=== PATIENT | male | born 1995 | race Caucasian/White ===

== ENCOUNTER 2025-03-01 16:53 | Emergency (ER) | payer SELFPAY ==
[2025-03-01 17:33] VITALS: PULSE 99; TEMP 97.2
--- NOTE | 2025-03-01 17:35 | ERPHSYRPT ---
- History of Present Illness Time Seen by Provider: 03/01/25 17:20 Physician History: Presents with recurrent low back pain. He reports he has had episodes of this for 4 years. He had a negative prior x-ray and what he describes as a CT scan for the same pain. He states it flares up once or twice a year. It is always just the left of the spine. In her shoulder that was lifting that caused it. Said increasing soreness and pain along with stiffness over the last week. He has had no symptoms of cauda equina including no bowel bladder symptoms. There is no radicular pain numbness or weakness. Allergies/Adverse Reactions: No Known Drug Allergies Allergy (Verified 03/01/25 17:33) Home Medications: lisinopriL [Lisinopril] 30 mg PO DAILY 03/01/25 [History] - Review of Systems Constitutional: No Fever, No Chills Eyes: No Symptoms Ears, Nose, & Throat: No Symptoms Respiratory: No Cough, No Dyspnea Cardiac: No Chest Pain, No Edema, No Syncope Abdominal/Gastrointestinal: No Abdominal Pain, No Nausea, No Vomiting, No Diarrhea Genitourinary Symptoms: No Dysuria Musculoskeletal: Back Pain, No Neck Pain Skin: No Rash Neurological: No Dizziness, No Focal Weakness, No Sensory Changes Psychological: No Symptoms Endocrine: No Symptoms All Other Systems: Reviewed and Negative - Physical Exam General Appearance: no apparent distress, alert Eye Exam: PERRL/EOMI, eyes nml inspection Ears, Nose, Throat Exam: normal ENT inspection, TMs normal, pharynx normal, moist mucous membranes Neck Exam: normal inspection, non-tender, supple, full range of motion Respiratory Exam: normal breath sounds, lungs clear, No respiratory distress Cardiovascular Exam: regular rate/rhythm, normal heart sounds, normal peripheral pulses Gastrointestinal/Abdomen Exam: soft, normal bowel sounds, No tenderness, No mass Back Exam: normal inspection, other (The LS-spine has normal appearance. The patient reports no focal midline pain. Patient describes tenderness on his focally at the left SI joint. There is no discoloration or redness. He has a negative straight leg raise. There is no motor weakness or sensory loss) Extremity Exam: normal inspection, normal range of motion, pelvis stable Neurologic Exam: alert, oriented x 3, cooperative, normal mood/affect, nml cerebellar function, nml station & gait, sensation nml, No motor deficits Skin Exam: normal color, warm, dry, No rash Lymphatic Exam: No adenopathy - Progress Progress Note: 03/01/25 17:30 Patient has recurrent back pain. He has no prior imaging. He has tenderness of the left SI joint but otherwise unremarkable neurovascular exam and no evidence of cauda equina. We discussed Modalities but I feel these are likely will be low yield outside of an MRI given his self-described prior x-rays and CTs of t his area. Will try symptomatic management. If he is not improved he will follow with his provider for further outpatient imaging and workup - Departure Clinical Impression: Sacro ilial pain Condition: Good Critical Care Time: No Instructions: Low Back Pain (DC) Additional Instructions: Being started on medication for your back pain which is over your sacroiliac joint. If your symptoms do not improve you should follow-up with your provider for further imaging or therapy. Return for worsening symptoms such as numbness weakness bowel or bladder symptoms. Prescriptions: Methylprednisolone Packet [Medrol Dosepack] 1 packet PO DAILY #6 packet Naproxen 500 mg [Naprosyn 500 MG] 500 mg PO BID #14 tablet Tizanidine HCl 4 mg [Zanaflex 4 MG] 4 mg PO BIDPRN PRN 4 Days #12 tablet PRN Reason: Muscle Spasms
[2025-03-01 17:41] VITALS: BP 161/115; O2SAT 95
== END 2025-03-01 17:44 | disposition home or self-care (01) ==
LOC: ED 16:53
DX: M53.3 Sacrococcygeal disorders, not elsewhere classified (principal); Z79.52 Long term (current) use of systemic steroids; Z79.899 Other long term (current) drug therapy